=== PATIENT | male | born 1990 | race Caucasian/White ===

== ENCOUNTER 2019-01-29 09:19 | Emergency (ER) | payer MEDICAID ==
[~2019-01-29] VITALS: Ht 172.7 cm; Wt 109.0 kg
[~2019-01-29 09:19] MED LIST: IBUP-2048 PO
[2019-01-29] MEDS ORDERED: KETOROLAC 60MG/2ML VIAL IM ONE (10:45)
[2019-01-29 11:39] VITALS: BP 145/81
== END 2019-01-29 11:45 | disposition home or self-care (01) ==
LOC: ER 09:30
DX: M54.9 Dorsalgia, unspecified (principal); M51.26 Other intervertebral disc displacement, lumbar region; Z88.0 Allergy status to penicillin; Z87.891 Personal history of nicotine dependence
CPT/HCPCS: 96372; 99283; J1885

== ENCOUNTER 2020-12-19 09:56 | Emergency (ER) | payer MEDICAID, OTHER ==
[~2020-12-19] VITALS: Ht 172.7 cm; Wt 90.0 kg
[2020-12-19] MEDS ORDERED: SODIUM CHLORIDE 0.9% 1,000 ML IV ONE (10:15)
[2020-12-19] MEDS ORDERED: KETOROLAC 15MG/ML VIAL IV NR (11:00)
[2020-12-19 11:05] LABS: BASOPHILS % 0.9 % (0.0-2.0); EOSINOPHILS % 0.7 % (0.0-5.0); LYMPHOCYTES % 22.1 % (20.0-50.0); MEAN CORPUSCULAR HEMOGLOBIN 29.3 pg (28.0-32.0); MEAN CORPUSCULAR VOLUME 85.6 fL (80.0-94.0); MEAN PLATELET VOLUME 6.9 fl (7.4-10.4); MONOCYTES % 9.8 % (2.0-8.0); NEUTROPHILS % 66.5 % (40.0-76.0); PLATELET 305 x1000/uL (130-400); RED BLOOD CELL COUNT 4.44 mill/uL (4.7-6.1); RED CELL DISTRIBUTION WIDTH 12.5 % (11.6-14.6)
[2020-12-19 11:10] LABS: CHLORIDE 107 mEq/L (98-107)
[2020-12-19 11:15] LABS: ETHANOL BLOOD < 10 mg/dL
[2020-12-19 12:20] LABS: CLARITY URINE CLEAR (CLEAR); COLOR URINE YELLOW (YELLOW); KETONES URINE 1+ (NEGATIVE); LEUKOCYTE ESTERASE URINE NEGATIVE (NEGATIVE); NITRITE URINE NEGATIVE (NEGATIVE); OCCULT BLOOD URINE NEGATIVE (NEGATIVE); PH URINE 5.5 (4.5-8.0); PROTEIN URINE TRACE (NEGATIVE); SPECIFIC GRAVITY URINE 1.027 (1.005-1.030); UROBILINOGEN URINE 0.2 E.U./dL (0.2-1.0)
[2020-12-19 13:16] LABS: *AMPHETAMINES SCREEN URINE PRESUMTIVE POSITIVE (NEGATIVE); *BARBITURATES SCREEN URINE NEGATIVE (NEGATIVE); *BENZODIAZEPINES SCREEN URINE NEGATIVE (NEGATIVE); *COCAINE SCREEN URINE NEGATIVE (NEGATIVE); CANNABINOID URINE SCREEN NEGATIVE (NEGATIVE); OPIATES URINE SCREEN NEGATIVE (NEGATIVE); PHENCYCLIDINE URINE SCREEN NEGATIVE (NEGATIVE)
[2020-12-19 13:17] LABS: METHADONE URINE SCREEN NEGATIVE (NEGATIVE)
[2020-12-19] MEDS ORDERED: POLYETHYLENE GLYCOL 3350 (17GM) 1 DOSE PACK PO NR (14:00)
[2020-12-19] MEDS ORDERED: POLY119P2 MT (15:22)
[2020-12-20 08:53] VITALS: BP 100/59
== END 2020-12-20 08:59 | disposition home or self-care (01) ==
LOC: ER 09:56
DX: R44.3 Hallucinations, unspecified (principal); F32.9 Major depressive disorder, single episode, unspecified; K59.00 Constipation, unspecified; F15.10 Other stimulant abuse, uncomplicated; F17.200 Nicotine dependence, unspecified, uncomplicated; F41.9 Anxiety disorder, unspecified; Z59.0 Homelessness; Z88.0 Allergy status to penicillin
CPT/HCPCS: 36415; 71045; 74018; 80053; 80305; 80307; 80320; 80329; 81003; 85025; 93005; 96361; 96374; 99285; J1885; J7030; Z7610; G0480